=== PATIENT | female | born 1955 | race Caucasian/White ===

== ENCOUNTER → 2018-01-29 | Outpatient (CLI) | payer BC | END | disposition home or self-care (01) | LOC: KCIC DEXA 07:51 | DX: Z13.820 Encounter for screening for osteoporosis (principal); M81.0 Age-related osteoporosis without current pathological fracture; Z78.0 Asymptomatic menopausal state | CPT/HCPCS: 77080 ==

== ENCOUNTER 2021-04-16 21:55 | Emergency (ER) | payer BC ==
[~2021-04-16] VITALS: Ht 170.2 cm; Wt 95.0 kg
[2021-04-16] MEDS ORDERED: AMLO5TAB4 PO (23:02)
[2021-04-16 23:22] LABS: BASO # 0.1 x10^3/uL (0.0-0.2); BASO % 1 % (0-3); EOS # 0.1 x10^3/uL (0.0-0.7); EOS % 2 % (0-3); HEMATOCRIT 44.2 % (36.0-47.0); HEMOGLOBIN 14.9 g/dL (12.0-15.5); LYMPH # 1.4 x10^3/uL (1.0-4.8); LYMPH % 14 % (24-48); MEAN CORPUSCULAR HEMOGLOBIN 28 pg (25-35); MEAN CORPUSCULAR HGB CONC 34 g/dL (31-37); MEAN CORPUSCULAR VOLUME 84 fL (79-100); MONO # 0.6 x10^3/uL (0.0-1.1); MONO % 6 % (0-9); NEUT # 7.8 x10^3/uL (1.8-7.7); NEUT % 78 % (31-73); PLATELET COUNT 310 x10^3/uL (140-400); RED BLOOD COUNT 5.28 x10^6/uL (3.50-5.40); RED CELL DISTRIBUTION WIDTH 14.7 % (11.5-14.5); WHITE BLOOD COUNT 10.1 x10^3/uL (4.0-11.0)
[2021-04-16 23:33] LABS: CALCIUM 9.2 mg/dL (8.5-10.1); CREATININE 0.8 mg/dL (0.6-1.0); POTASSIUM 3.5 mmol/L (3.5-5.1)
[2021-04-16 23:39] LABS: ALBUMIN 3.8 g/dL (3.4-5.0); ALBUMIN/GLOBULIN RATIO 1.1 (1.0-1.7); TOTAL BILIRUBIN 0.4 mg/dL (0.2-1.0); TOTAL PROTEIN 7.4 g/dL (6.4-8.2)
--- NOTE | 2021-04-16 23:40 | PHYS DOC ---
Past Medical History Past Medical History: Hypertension Additional Past Medical Histor: anxiety Past Surgical History: No Surgical History, Hysterectomy Smoking Status: Former Smoker General Adult EDM: Chief Complaint: Accidental overdose of 6 additional Norvasc tablets HPI: HPI: 65-year-old female history of hypertension who takes an SUNSHINE inhibitor as well as 5 mg of Norvasc daily says that she accidentally took 6 extra 5 mg Norvasc tablets around 9:00, she thought that they were her nightly medicines, she said that she takes atorvastatin, lisinopril and some antidepressants, she says that this happened about 2 hours ago, she is asymptomatic, no dizziness, no chest pain or shortness of breath and she says "I came here just to be on the safe side", denies any suicidal or homicidal thoughts, Review of Systems: Review of Systems: General: no fevers , no chills, no general weakness Eyes: no blurred vision, no diplopia Skin: no rashes Neck: no swelling, no neck stiffness, no neck pain Heme: no bleeding, no lymph node enlargement Ear/Nose/Throat: No sore throat, no runny nose, no hearing loss, no difficulty swallowing Cardiovascular: no Chest pain, no palpitations Respiratory: No dyspnea, no cough, no hemoptysis Gastrointestinal: No abdominal pain, no nausea, no vomiting, no diarrhea, no blood in stool Genitourinary: no dysuria, no hematuria Musculoskeletal: no back pain, no leg pain, no arm pain, no arthralgia Neurologic: no headaches, no dizziness, no focal numbness/tingling, no focal weakness Psych: no depression, no anxiety, no SI/HI *All review of systems are negative other than what is noted above Heart Score: C/O Chest Pain: No Risk Factors: Risk Factors: DM, Current or recent (<one month) smoker, HTN, HLP, family history of CAD, obesity. Risk Scores: Score 0 - 3: 2.5% MACE over next 6 weeks - Discharge Home Score 4 - 6: 20.3% MACE over next 6 weeks - Admit for Clinical Observation Score 7 - 10: 72.7% MACE over next 6 weeks - Early Invasive Strategies Current Medications: Norvasc, 5 mg, lisinopril/captopril, atorvastatin, Allergies: Allergies: Allergies Coded Allergies Type Severity Reaction Last Updated Verified metoprolol Allergy Intermediate 04/16/21 Yes Physical Exam: PE: Gen-well appearing, no acute distress Head: Normocephalic/Atraumatic ENT: atraumatic, PERRLA, EOMI, oropharynx clear Neck: supple, full ROM/strength, no JVD, no nuchal rigidity Lungs: no distress, speaks in full sentences, Clear to auscultation bilaterally CV: reg rate, rhythm, no murmus/rubs/gallops, peripheral pulses equal in all extremities Abdomen: soft/nontender, no guarding/rebound tenderness, no rigidity, non distended, normoactive bowel sounds Musculoskeletal: full ROM/strength in all extremities, atraumatic, no swelling Back: full range of motion/strength Skin: intact, no rashes Lymph: no gross OH Neuro: alert and oriented x 4, CN 2-12 grossly intact, Motor strength is 5/5 in all extremities, no focal sensory deficits, no focal ataxia, ambulatory with steady gait Psych: normal mood/affect Current Patient Data: Vital Signs: Vital Signs Date Time Temp Pulse Resp B/P (MAP) Pulse Ox O2 Delivery O2 Flow Rate FiO2 04/16/21 22:56 98.4 66 18 115/73 (87) 97 Room Air 98.4 EKG: EKG: Patient's twelve-lead EKG was performed at 11:02 PM: Sinus tachycardia, rate is 107, there is 2 PVCs present in respiratory baseline wander, the computer is reading "ST and T abnormality, consider a high lateral ischemia or left ventricular strain", I believe there is signs of LVH but I do not believe this is an ischemic appearing EKG, there is also left anterior fascicular block present Radiology/Procedures: Radiology/Procedures: [] Course & Med Decision Making: Course & Med Decision Making Pertinent Labs and Imaging studies reviewed. (See chart for details) [] 65-year-old female comes to the emergency department for evaluation after she had accidentally taken 6 additional Norvasc tablets for a total dose of 35 mg that occurred about 2 to 3 hours ago, currently the patient is asymptomatic, no focal findings on exam, blood pressure is actually elevated on arrival, is not hypotensive, will consult the poison center for management recommendations I do believe that she will need several hours of observation, will get labs, 1210am: Patient is asymptomatic, labs noted and are within normal limits, the poison center did recommend 6 hours of total observation from the time of the ingestion which was 9 PM so we will observe her and closely monitor her blood sugar 316am according the poison center's recommendations we observe this patient in the ER for 6 hours from time of ingestion, she is asymptomatic and the work-up here is negative, believe she stable for discharge at this time her blood pressures remained stable and actually little bit high, though work-up here was unremarkable, and she stable for discharge at this time Patient was seen in the ED for an accidental ingestion of extra Norvasc tablets but she was observed and is clinically improved and has no active symptoms there is no apparent evidence of any emergency medical pathology at this time, patient was advised follow-up with their primary care provider /physician in the next 24-48 hours and to return to the ED before then if any new or worsening / concerning symptoms had developed. 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 Departure Departure Impression: Primary Impression: Unintentional poisoning by calcium-channel micaela Qualified Codes: T46.1X1A - Poisoning by calcium-channel blockers, accidenta l (unintentional), initial encounter Disposition: HOME / SELF CARE / HOMELESS Condition: IMPROVED Referrals: NON,STAFF (PCP) Patient Instructions: Hypertension, Overdose, Accidental Additional Instructions: Please make sure to look at your medicines before you take them, want you to follow-up with your primary care doctor in the next 48 hours, do not take any amlodipine for the next 24 hours, return to the nearest emergency room if any new or concerning symptoms develop LILIANA HASKINS MD Apr 16, 2021 23:40
--- NOTE | 2021-04-17 02:49 | EKG ---
[facility] [address] [place] [address] Test Date: 2021-04-16 Test Time: 23:02:53 Pat Name: RADHA CROSS Department: Room: Gender: F [employer]: : 1955 Requested By: LILIANA HASKINS Order Number: [id number] Reading MD: Measurements Intervals Remer Rate: 107 P: 31 GA: 136 QRS: -31 QRSD: 96 T: 108 QT: 364 QTc: 492 Interpretive Statements SINUS TACHYCARDIA VENTRICULAR PREMATURE COMPLEX(ES) ABNORMAL LEFT AXIS DEVIATION LEFT ANTERIOR FASCICULAR BLOCK CONSIDER LEFT VENTRICULAR HYPERTROPHY ST & T ABNORMALITY, CONSIDER HIGH LATERAL ISCHEMIA OR LEFT VENTRICULAR STRAIN T ABNORMALITY IN LATERAL LEADS ABNORMAL ECG RI6.02 No previous ECG available for comparison
[2021-04-17 03:00] VITALS: BP 131/69
== END 2021-04-17 03:32 | disposition home or self-care (01) ==
LOC: ER 21:55
DX: T46.1X1A Poisoning by calcium-channel blockers, accidental (unintentional), initial encounter (principal); I10 Essential (primary) hypertension; Z87.891 Personal history of nicotine dependence; Z88.1 Allergy status to other antibiotic agents; Y92.89 Other specified places as the place of occurrence of the external cause
CPT/HCPCS: 36415; 80053; 82962; 83880; 84484; 85025; 93005; 99285-25